=== PATIENT | male | born 2005 | race Caucasian/White ===

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

== ENCOUNTER 2025-01-15 16:48 | Emergency (ER) | payer SELFPAY ==
[~2025-01-15] VITALS: Wt 64.9 kg
[~2025-01-15 16:48] MED LIST changes: +SEPTDS PO
== END 2025-01-15 18:55 | disposition home or self-care (01) ==
LOC: ED 16:48
DX: S09.90XA Unspecified injury of head, initial encounter (principal); W22.09XA Striking against other stationary object, initial encounter; Y93.89 Activity, other specified; Y92.89 Other specified places as the place of occurrence of the external cause; Y99.8 Other external cause status